=== PATIENT | male | born 1945 | race Caucasian/White ===

== ENCOUNTER 2016-04-16 09:42 | Day surgery (SDC) | payer OTHER ==
[~2016-04-16] VITALS: Ht 182.9 cm; Wt 95.0 kg
[~2016-04-16 09:42] MED LIST: ALTACE10 MG PO; LO-DOSE ASPIRIN81 M2 PO; LOPRESSOR100 M1 PO; NASONEX17 GM BOTH NARES; NITROSTAT0.4 MG SL; NORVASC10 MG PO; PROCARDIA XL30 MG PO; RELAFEN750 MG PO; WELCHOL625 MG PO; ZETIA10 MG PO
[2016-04-16 10:27] VITALS: BP 133/80
[2016-04-16 15:25] VITALS: BP 154/92
[2016-04-16 19:20] VITALS: BP 128/68
[2016-04-16 23:24] VITALS: BP 123/86
[2016-04-16 23:35] VITALS: BP 131/75
[2016-04-17 06:55] LABS: HEMATOCRIT 40.1 % (38.0-50.0); MCH 26.4 PG (29.0-34.0); MCHC 33.2 G/DL (30.0-36.0); MCV 79.6 FL (86-99); MEAN PLAT.VOLUME 9.5 uM^3 (9.0-12.4); PLATELET COUNT 255 K/uL (156-360); RBC DIS.WIDTH-CV 13.4 % (11.8-14.6); RBC DIS.WIDTH-SD 38.6 % (39-53); RED BLOOD COUNT 5.04 M/uL (4.00-5.50); WHITE BLOOD COUNT 7.6 K/uL (4.1-10.2)
[2016-04-17 07:16] LABS: ANION GAP 6 MEQ/L (2-14); CHLORIDE 105 MEQ/L (99-109); GFR ESTIMATE (CALCULATED) > 59 mL/min/; GLUCOSE 90 mg/dL (70-99); POTASSIUM 4.3 MEQ/L (3.7-5.4); SAMPLE HEMOLYSIS CHECK 0; SAMPLE ICTERIC CHECK 0; SAMPLE LIPEMIA CHECK 0; SODIUM 138 MEQ/L (136-147); UREA NITROGEN (BUN) 10 mg/dL (9-23)
[2016-04-17 08:06] VITALS: BP 107/66
[2016-04-17 12:31] VITALS: BP 111/64
== END 2016-04-17 14:38 | disposition home or self-care (01) ==
LOC: SDC 09:42 → 2SOUTH 14:21 → 2EAST 14:21 → 2SOUTH 14:21 → 2EAST 14:52
PROVIDERS: Surgery
DX: K40.90 Unilateral inguinal hernia, without obstruction or gangrene, not specified as recurrent (principal); N43.3 Hydrocele, unspecified; I49.5 Sick sinus syndrome; I25.10 Atherosclerotic heart disease of native coronary artery without angina pectoris; I10 Essential (primary) hypertension; I65.29 Occlusion and stenosis of unspecified carotid artery; J44.9 Chronic obstructive pulmonary disease, unspecified; E78.5 Hyperlipidemia, unspecified; F17.200 Nicotine dependence, unspecified, uncomplicated; I25.2 Old myocardial infarction; Z79.82 Long term (current) use of aspirin
CPT/HCPCS: 80048; 85027; 88305; C1781; G0378; J0131; J0330; J0690; J1170; J1650; J1885; J2250; J2405; J2710; J3010; J7120; S0020

== ENCOUNTER → 2016-04-24 | Outpatient (CLI) | payer OTHER | END | disposition home or self-care (01) | LOC: AMB 12:30 | DX: Z09 Encounter for follow-up examination after completed treatment for conditions other than malignant neoplasm (principal) | CPT/HCPCS: 99212 ==